=== PATIENT | female | born 1985 | race African-American/Black ===

== ENCOUNTER 2022-11-18 10:49 | Inpatient (IN) | payer BC ==
[~2022-11-18] VITALS: Ht 170.2 cm; Wt 94.3 kg
[2022-11-18] MEDS ORDERED: LACTATED RINGERS 1,000 ML IV SCH (11:10)
[2022-11-18] MEDS ORDERED: CITRIC ACID/SODIUM CITRATE 30 ML UDC PO SCH (11:10)
[2022-11-18 12:01] LABS: APPEARANCE,URINE CLEAR (CLEAR); BILIRUBIN,URINE NEGATIVE (NEGATIVE); BLOOD, URINE NEGATIVE (NEGATIVE); COLOR,URINE YELLOW (YELLOW); LEUKOCYTE ESTERASE ,URINE TRACE (NEGATIVE); NITRITE, URINE NEGATIVE (NEGATIVE); UGLUCOSE NEGATIVE (NEGATIVE)
[2022-11-18 12:13] LABS: BASOPHILS % (AUTO) 0.3 % (0.0-2.0); EOSINOPHILS # (AUTO) 0.1 K/uL (0-0.4); EOSINOPHILS % (AUTO) 1.3 % (0.0-4.0); HEMATOCRIT 34.3 % (36-48); HEMOGLOBIN 11.7 g/dL (12.0-16.0); LYMPHOCYTES # (AUTO) 1.5 K/uL (2.5-16.5); LYMPHOCYTES % (AUTO) 16.2 % (20.5-51.1); MEAN CORPUSCULAR HEMOGLOBIN 30 pg (27-31); MEAN CORPUSCULAR HGB CONC 34 g/dL (33-37); MEAN CORPUSCULAR VOLUME 87.6 fL (80-94); MONOCYTES # (AUTO) 0.5 K/uL (0.8-1.0); MONOCYTES % (AUTO) 5.7 % (1.7-9.3); NEUTROPHILS % (AUTO) 76.5 % (42.2-75.2); PLATELET COUNT (AUTO) 196 K/uL (140-450); RED BLOOD CELL COUNT(AUTO) 3.92 MIL/uL (4.20-5.40); RED CELL DISTRIBUTION WIDTH 13.4 % (11.6-13.7); WHITE BLOOD COUNT (AUTO) 9.1 K/uL (4.8-10.8)
[2022-11-18 12:16] LABS: PROTHROMBIN TIME 9.6 secs (10.8-13.4)
[2022-11-18] MEDS ORDERED: MORPHINE PRES FREE 10 MG/10 ML AMP IV ONE (12:22)
[2022-11-18] MEDS ORDERED: OXYTOCIN 20 UNITS in LACTATED RINGERS 1,000 ML IV SCH ×2 (13:00→13:10)
[2022-11-18] MEDS ORDERED: METHYLERGONOVINE 0.2 MG/ML AMP IM PRN (13:00)
[2022-11-18] MEDS ORDERED: TEMAZEPAM 15 MG CAP PO PRN (13:00)
[2022-11-18] MEDS ORDERED: KETOROLAC 30 MG/ML VIAL IVP PRN ×3 (13:00→17:50)
[2022-11-18] MEDS ORDERED: oxyCODONE/APAP 5/325 MG 1 TAB TAB PO PRN ×2 (13:00)
[2022-11-18] MEDS ORDERED: NALOXONE 0.4 MG/ML VIAL IVP PRN (13:10)
[2022-11-18] MEDS: diphenhydrAMINE 50 MG/ML VIAL IVP PRN (14:00)
[2022-11-18] MEDS: OXYTOCIN 20 UNITS/LR PREMIX 1,000 ML IV ONE ×2 (14:09→14:30)
[2022-11-18] MEDS ORDERED: PREN-497 PO (16:31)
[2022-11-18] MEDS: ONDANSETRON 4 MG/2 ML VIAL IVP PRN ×2 (17:56→22:00)
[2022-11-18] MEDS ORDERED: DOCUSATE SOD/SENNA 50/8.6 MG 1 TAB PO SCH (21:00)
[2022-11-18] MEDS ORDERED: OXYTOCIN 20 UNITS/LR PREMIX 1,000 ML IV ONE (23:13)
[2022-11-19] MEDS ORDERED: OXYTOCIN 20 UNITS/LR PREMIX 1,000 ML IV ONE (06:05)
[2022-11-19] MEDS: diphenhydrAMINE 50 MG/ML VIAL IVP PRN (06:31)
--- NOTE | 2022-11-19 09:06 | NUR ---
PATIENT HAS BEEN SCREENED AND CATEGORIZED LOW NUTRITION RISK. PATIENT WILL BE SEEN WITHIN 7 DAYS OF ADMISSION. 11/25/[address]
[2022-11-19 09:44] LABS: BASOPHILS % (AUTO) 0.3 % (0.0-2.0); EOSINOPHILS % (AUTO) 0.3 % (0.0-4.0); HEMOGLOBIN 10.5 g/dL (12.0-16.0); LYMPHOCYTES # (AUTO) 1.1 K/uL (2.5-16.5); LYMPHOCYTES % (AUTO) 8.7 % (20.5-51.1); MEAN CORPUSCULAR HEMOGLOBIN 30 pg (27-31); MEAN CORPUSCULAR HGB CONC 34 g/dL (33-37); MEAN CORPUSCULAR VOLUME 87.8 fL (80-94); MONOCYTES # (AUTO) 0.7 K/uL (0.8-1.0); MONOCYTES % (AUTO) 5.3 % (1.7-9.3); NEUTROPHILS # (AUTO) 10.6 K/uL (1.8-7.7); NEUTROPHILS % (AUTO) 85.4 % (42.2-75.2); PLATELET COUNT (AUTO) 155 K/uL (140-450); RED BLOOD CELL COUNT(AUTO) 3.53 MIL/uL (4.20-5.40); RED CELL DISTRIBUTION WIDTH 13.2 % (11.6-13.7); WHITE BLOOD COUNT (AUTO) 12.4 K/uL (4.8-10.8)
[2022-11-19] MEDS: SIMETHICONE 80 MG TAB.CHEW PO PRN ×2 (10:30→12:52)
[2022-11-19] MEDS: IBUPROFEN 800 MG TAB PO PRN (20:58)
[2022-11-20] MEDS: SIMETHICONE 80 MG TAB.CHEW PO PRN ×2 (02:27→10:00)
[2022-11-20] MEDS ORDERED: CAMERA MC ONE (02:48)
[2022-11-20] MEDS: IBUPROFEN 800 MG TAB PO PRN (10:00)
== END 2022-11-20 15:50 | disposition home or self-care (01) | DRG 785 ==
LOC: INTOOBSV 10:49 → MLD 10:49 → OBSVTOIN 10:49 → MFCC 14:30
PROVIDERS: ADMIT Obstetrics & Gynecology; ATTEND Obstetrics & Gynecology
PROC: 0UB70ZZ Excision of Bilateral Fallopian Tubes, Open Approach (ICD-10-PCS; 2022-11-18)
PROC: 10D00Z1 Extraction of Products of Conception, Low, Open Approach (ICD-10-PCS; principal; 2022-11-18 12:00)
DX: O34.211 Maternal care for low transverse scar from previous cesarean delivery (principal); Z20.822 Contact with and (suspected) exposure to COVID-19; Z3A.39 39 weeks gestation of pregnancy; Z37.0 Single live birth; Z30.2 Encounter for sterilization
CPT/HCPCS: 36415; 81003; 85025; 85610; 85730; 86592; 86886; 86900; 86901; 90715; J0690; J1200; J2270; J2405; J2590; J7060; J7120